=== PATIENT | female | born 1935 | race Caucasian/White ===

== ENCOUNTER → 2020-10-08 08:34 | Outpatient (BNVA) | payer MEDICARE, SELFPAY | PROVIDERS: PCP Internal Medicine; Visit Provider Internal Medicine Cardiovascular Disease | DX: R42 Dizziness and giddiness (principal); Z86.79 Personal history of other diseases of the circulatory system | CPT/HCPCS: 93005; 99212 ==

== ENCOUNTER → 2021-10-29 09:14 | Outpatient (REF) | payer MEDICARE, SELFPAY ==
--- NOTE | 2021-10-29 09:28 | CA_ITS ---
Transthoracic Echocardiogram Patient (Last, First, Middle): Fina Mathew S Gender: Female Date of : 1935 Age: 85 Procedure Date: 10/29/2021 Procedure Type: Transthoracic Echocardiogram Location: OP Height: 149.86 cm Weight: 72.12 kg BSA: 1.67 m2 Heart Rate: bpm BP: 120 / 70 mmHg Stone Paver: BRITTNY Dasilva MD: Henrry Bird MD Instrument Repairer Helper: Henrry Bird MD Symptoms: Z86.79 - Personal history of other diseases of the circul... Study Quality: Fair Conclusions: - 1. Mildly reduced LV systolic function with grade 1 diastolic dysfunction 2. Normal cardiac valvular Doppler 3. Normal RV systolic pressure 4. No pericardial effusion Findings Left Ventricle Normal left ventricular cavity size. There is normal left ventricular wall thickness. The left ventricular systolic function is mildly decreased. The visually estimated ejection fraction is between 45-50%. Spectral Doppler is indicative of an impaired relaxation filling pattern. E/E prime ratio is <8, consistent with normal filling pressures. Evidence suggests grade I (mild) diastolic dysfunction. Right Ventricle Normal right ventricular cavity size and systolic function. Atria The left atrium is normal in size. Interatrial shunt cannot be excluded. The right atrium is normal in size. Aortic Valve There is mild thickening of the aortic valve. There is no aortic valve stenosis. There is no aortic valve regurgitation. Mitral Valve There is mild anterior mitral leaflet thickening. There is mild mitral annular calcification. There is trace mitral valve regurgitation. There is no mitral valve stenosis. Pulmonic Valve The pulmonic valve was not well visualized. Tricuspid Valve Likely normal tricuspid valve structure and function. There is trace tricuspid valve regurgitation. The right ventricular systolic pressure is normal. The right ventricular systolic pressure is 22 mmHg. There is no evidence of pulmonary hypertension. Great Vessels All visible segments of the aorta are normal in size. The pulmonary artery was not well visualized. Venous The inferior vena cava is normal in size and collapses greater than 50% with inspiration. Pericardium/Pleural There is no evidence of pericardial effusion. Prior Study Comparison Changes noted compared to prior study dated: 09/12/2019. LV systolic function is reduced Measurements 2D Linear Measurements IVSd: 1.01 0.6-0.9/0.6-1.0 cm LVIDd: 3.98 3.9-5.3/4.2-5.9 cm LVIDd Index: 2.38 2.4-3.2/2.2-3.1 cm/m2 LVIDs: 2.97 2.0-3.6 cm LVPWd: 1.04 0.7-1.1 cm LA Diam: 3.30 2.7-3.8/3.0-4.0 cm LAIDs Index: 1.98 1.5-2.3 cm/m2 LV Mass: 162.46 67-162/88-224 g LV Mass Index: 97.28 43-95/49-115 g/m2 LVOT Diam: 2.00 3.0+(-)1.3 cm 2D Systolic Function EF 4C: 46.60 >55% EF 2C: 47.80 >55% EF BiP: 45.80 >55% Mitral Valve MV Pk E: 0.59 MV PK A: 1.30 MV Decel Time: 273.00 E/A: 0.50 PHT: 80.00 MVA PHT: 2.75 Decel Wagoner: 2.16 Aortic Valve AoV Pk Abdelrahman: 1.76 AoV Mn Abdelrahman: 1.26 AoV VTI: 0.35 AoV Pk Grad: 12.00 Aov Mn Grad: 7.00 KLARISSA Cont.VTI: 1.57 LVOT LVOT Pk Abdelrahman: 0.71 LVOT Mn Abdelrahman: 0.49 LVOT VTI: 0.17 LVOT Pk Grad: 2.00 LVOT Mn Grad: 1.00 LVOT Diam: 2.00 LVOT Area: 3.14 Diastolic Function MV Pk E: 0.59 MV Pk A: 1.30 E/A: 0.50 Right Ventricle TAPSE (mm): 17.30 TVS' Abdelrahman: 11.40 Tricuspid Valve TR Pk Abdelrahman: 2.16 TR Pk Grad: 19.00 RA Press: 3.00 RVSP: 22.00 Great Vessels Aorta Sinus of Valsalva: 3.15 2.0-3.[address] Ridge: 3.08 1.7-3.4 cm Ao Asc: 3.60 2.1-3.4 cm Ao Arch: 2.70 Updated in Other Vendor System with Status of Final Henrry Bird MD electronically signed on 10/29/2021 1:45:03 PM with status of Final
== END ==
LOC: HO.CARD 09:14
PROVIDERS: PCP Internal Medicine; Visit Provider Internal Medicine Cardiovascular Disease
DX: I10 Essential (primary) hypertension (principal); Z86.79 Personal history of other diseases of the circulatory system
CPT/HCPCS: 93306

== ENCOUNTER → 2021-12-03 10:23 | Outpatient (BNVA) | payer MEDICARE, SELFPAY | PROVIDERS: PCP Internal Medicine; Referring Provider Internal Medicine; Visit Provider Internal Medicine Cardiovascular Disease | DX: I42.9 Cardiomyopathy, unspecified (principal); I10 Essential (primary) hypertension; R42 Dizziness and giddiness; Z79.899 Other long term (current) drug therapy | CPT/HCPCS: 93005; 99212 ==

== ENCOUNTER 2023-03-23 13:52 | Outpatient (AMB) | payer MEDICARE, SELFPAY ==
[2023-03-23 14:05] VITALS: BP 130/80; PULSE 78; BMI 28.9
--- NOTE | 2023-03-23 14:05 | A.OFFVIS_ITS ---
Intake Vital Signs 03/23/23 14:05 Height 4 ft 11 in Weight 143 lb 4.807 oz BMI 28.9 BP 130/80 Blood Pressure Location Lt brachial Position Sitting Pulse 78 Intake Visit Reasons: 1 year follow up Intake Note: 1 year follow-up with ekg feeling good Cementing Machine Operator Required: No Fence Gate Assembler: Fence Gate Assembler Present Accompanied by: spouse and daughter Allergies No Known Allergies Allergy (Unverified 03/28/20 15:15) Medication List - Last Reconciled 03/23/23 by Henrry Bird MD clopidogrel 75 mg PO DAILY fluoxetine 40 mg PO lamotrigine 25 mg PO levothyroxine 50 mcg PO losartan 50 mg PO DAILY metoprolol succinate ER 50 mg PO DAILY simvastatin 20 mg PO BEDTIME HPI HPI Comments History of Present Illness Details Fina comes for follow-up. No new cardiac symptoms to report. She continues to have symptoms of lightheadedness when she is sitting up. She has no symptoms of syncope. Denies any prolonged palpitations or irregular heartbeat. Denies any orthopnea, PND, leg edema. She is taking all medications and tolerating them well. [facility] Medical History Cardiomyopathy HTN (hypertension) Surgical History History of bladder surgery Hx of eye surgery Family History Father No problems noted. Mother Diabetes Review of Systems Const Denies chills, Denies fatigue, Denies fever(s), Denies frequent falls, Denies weakness, Denies weight gain and Denies weight loss ENT Denies dizziness Card Denies chest pain, Denies leg edema, Denies lightheadedness, Denies palpitations, Denies dyspnea, Denies dyspnea on exertion, Denies orthopnea and Denies other (loss of consciousness) Resp Denies cough, Denies dyspnea and Denies dyspnea on exertion GI Denies hematochezia and Denies change in stool character Musc Denies abnormal gait, Denies muscle weakness, Denies numbness, Denies radiating pain into limb and Denies tingling Neuro Denies abnormal gait, Denies dizziness, Denies frequent falls, Denies numbness, Denies tingling and Denies weakness Endo Denies fatigue and Denies palpitations Physical Exam Vital Signs: Last Vital Signs Pulse 78 03/23/23 14:05 BP 130/80 03/23/23 14:05 BMI result Body Mass Index 28.9 Const General: cooperative, comfortable, no acute distress, alert and awake Nutritional Appearance: obese Orientation/consciousness: patient oriented x3 Limitations: ambulation with cane Neck Neck: Yes trachea midline, Yes supple and Yes no JVD Chest Chest palpation & inspection: normal inspection of the chest Resp Effort & Inspection: normal respiratory effort Auscultation: clear to auscultation bilaterally Cardio Jugular venous distension: no JVD Palpation: normal PMI Rate: regular rate Rhythm: regular rhythm Heart sounds: S1 normal heart sound present and S2 normal heart sound present GI Auscultation: normal bowel sounds Skin General skin exam: no rashes or lesions noted Neuro General: patient oriented x3 and no focal motor deficits Extrem General: Yes no clubbing, cyanosis or edema Psych Appearance: grossly normal Office Procedures EKG Details: EKG shows normal sinus rhythm with LVH with repolarization abnormality with left axis deviation [id number], Complete Assessment & Plan Assessment & Plan (1) Cardiomyopathy: Code(s): I42.9 - Cardiomyopathy, unspecified Plan: Mild nonischemic cardiomyopathy without any signs or symptoms of congestive heart failure. Continue current neurohormonal modulation with metoprolol and losartan. Signs and symptoms of heart failure were discussed. Advised to monitor blood pressure at home. Target goal blood pressure less than 130/84. Advised to maintain adequate hydration and avoid salt loading. Daily weight monitoring is advised. Continue maintain activity level as tolerated. Patient continues to have symptoms of lightheadedness, suggestive of orthostatic lightheadedness. We discuss orthostatic precautions and management of the same. Maintain adequate hydration. Follow up in the clinic in 1 year's time, sooner p.r.n.. Thank you for allowing me to partake in her care Orders: Orders CA echo transthoracic complete 50 Weeks I42.9 - Cardiomyopathy, unspecified Coding Level of Care Code Est Pt Level 4 (12525) Diagnoses Cardiomyopathy I42.9 CPT Codes EKG - CPT: 89533-[id number], Complete ([id number])
== END 2023-03-23 14:31 | disposition home or self-care (01) ==
PROVIDERS: PCP Internal Medicine; Referring Provider Internal Medicine; Visit Provider Internal Medicine Cardiovascular Disease
DX: I42.9 Cardiomyopathy, unspecified (principal)
CPT/HCPCS: 93010; 99214

== ENCOUNTER → 2023-03-23 13:52 | Outpatient (BNVA) | payer MEDICARE, SELFPAY | PROVIDERS: PCP Internal Medicine; Referring Provider Internal Medicine; Visit Provider Internal Medicine Cardiovascular Disease | DX: I42.8 Other cardiomyopathies (principal) | CPT/HCPCS: 93005; 99212 ==